=== PATIENT | male | born 1965 | race African-American/Black ===

== ENCOUNTER 2021-09-05 11:33 | Emergency (ER) | payer OTHER ==
[2021-09-05 11:40] VITALS: BP 153/82; PULSE 72; TEMP 98.6; BMI 29.0
[2021-09-06 08:06] LABS: SARS-CoV-2 NAA Not Detected (Not Detected)
== END 2021-09-05 12:47 | disposition home or self-care (01) ==
LOC: JERFT 11:33
DX: A09 Infectious gastroenteritis and colitis, unspecified (principal); R11.2 Nausea with vomiting, unspecified
CPT/HCPCS: 87804; 99283-25; C9803-CS; U0003; U0005